=== PATIENT | female | born 1945 | race Caucasian/White ===

== ENCOUNTER 2018-03-09 11:36 | Emergency (ER) | payer MEDICARE ==
--- NOTE | 2018-03-09 12:50 | RAD ---
HISTORY: Right knee pain COMPARISONS: April 14, 2004 VIEWS: 4, Frontal, lateral, axial, and oblique views of the right knee FINDINGS: BONE DENSITY: Normal. BONES: There is no displaced fracture. JOINTS: There is chondrocalcinosis. There is mild tricompartmental osteoarthritis. There is no suprapatellar joint effusion or lipohemarthrosis. ALIGNMENT: There is no dislocation. SOFT TISSUES: Unremarkable. OTHER FINDINGS: None. IMPRESSION: 1. CHONDROCALCINOSIS. 2. OSTEOARTHRITIS. 3. NO ACUTE OSSEOUS INJURY. IF SYMPTOMS PERSIST, RECOMMEND REPEAT IMAGING.
[2018-03-09 13:20] VITALS: BP 129/70
--- NOTE | 2018-03-10 16:25 | ED ---
Beatriz Ge Thomas, scribed for Lb Dorantes MD on 03/09/18 at 1247 . Lower Extremity - HPI Summary HPI Summary: The patient is a 72 year old female complaining of right knee pain and swelling that began three days ago. She thinks she twisted her knee. The patient has been elevating her knee and applying ice. She has been taking naproxen for the pain. - History of Current Complaint Chief Complaint: EDExtremityLower Stated Complaint: RIGHT LEG PAIN Time Seen by Provider: 03/09/18 12:05 Hx Obtained From: Patient Mechanism Of Injury: Other - Twisted knee Onset/Duration: Still Present Severity Currently: Severe Pain Intensity: 9 Pain Scale Used: 0-10 Numeric Timing: Constant Location: Is Discrete @ - right knee Associated Signs And Symptoms: Positive: Swelling - to knee Aggravating Factor(s): Movement Alleviating Factor(s): Elevation, Ice, OTC Meds - Allergies/Home Medications Home Medications: Home Medications Aspirin EC TAB* [Ecotrin EC TAB*] 325 mg PO DAILY 03/09/18 [History Confirmed ] Lisinopril TAB* [Prinivil TAB*] 40 mg PO DAILY 03/09/18 [History Confirmed 03/09] PARoxetine HCL TAB* [Paxil TAB*] 30 mg PO DAILY 03/09/18 [History Confirmed 11/14] Simvastatin (NF) [Zocor (NF)] 40 mg PO DAILY 03/09/18 [History Confirmed ] clonazePAM TAB(*) [KlonoPIN TAB(*)] 0.5 - 1 mg PO BID PRN 03/09/18 [History Confirmed 03/09/18] PMH/Surg Hx/FS Hx/Imm Hx Cardiovascular History: Reports: Hx Coronary Artery Disease Musculoskeletal History: Reports: Hx Osteoporosis Infectious Disease History: No Infectious Disease History: Denies: Traveled Outside the [place] in Last 30 Days - Family History Known Family History: Positive: Other - Colon [place] - Social History Lives: With Family Alcohol Use: None Substance Use Type: Reports: None Smoking Status (MU): Heavy Every Day Tobacco Smoker Review of Systems Negative: Epistaxis Positive: Other - Right knee pain and swelling All Other Systems Reviewed And Are Negative: Yes Physical Exam - Summary Physical Exam Summary: GENERAL: Patient is a well-developed and nourished female who is lying comfortable in the stretcher. Patient is not in any acute respiratory distress. HEAD AND FACE: No signs of trauma. No ecchymosis, hematomas or skull depressions. No sinus tenderness. EYES: PERRLA, EOMI x 2, No injected conjunctiva, no nystagmus. EARS: Hearing grossly intact. Ear canals and tympanic membranes are within normal limits. MOUTH: Oropharynx within normal limits. NECK: Supple, trachea is midline, no adenopathy, no JVD, no carotid bruit, no c- spine tenderness, neck with full ROM. CHEST: Symmetric, no tenderness at palpation LUNGS: Clear to auscultation bilaterally. No wheezing or crackles. CVS: Regular rate and rhythm, S1 and S2 present, no murmurs or gallops appreciated. ABDOMEN: Soft, non-tender. No signs of distention. No rebound no guarding, and no masses palpated. Bowel sounds are normal. EXTREMITIES: She has swelling to the right knee, especially the medial aspect of the knee. There is no deformity, ecchymosis, and hematoma. She has good pulses and good capillary refill. Otherwise, FROM in all major joints, no edema , no cyanosis or clubbing. NEURO: Alert and oriented x 3. No acute neurological deficits. Speech is normal and follows commands. SKIN: Dry and warm Triage Information Reviewed: Yes Vital Signs On Initial Exam: Initial Vitals Temp Pulse Resp BP Pulse Ox 99.3 F 108 20 146/86 92 03/09/18 11:39 03/09/18 11:39 03/09/18 11:39 03/09/18 11:39 03/09/18 11:39 Vital Signs Reviewed: Yes Diagnostics - Vital Signs Vital Signs Temp Pulse Resp BP Pulse Ox 03/09/18 11:39 99.3 F 108 20 146/86 92 - Laboratory Lab Statement: Any lab studies that have been ordered have been reviewed, and results considered in the medical decision making process. - Radiology Knee XR Xray Interpretation: No Acute Changes - IMPRESSION: 1. CHONDROCALCINOSIS. 2. OSTEOARTHRITIS. 3. NO ACUTE OSSEOUS INJURY. IF SYMPTOMS PERSIST, RECOMMEND REPEAT IMAGING. Dr. Dorantes has reviewed this report. Radiology Interpretation Completed By: Radiologist Re-Evaluation - Re-Evaluation First Eval Re-Evaluation Time: 13:07 Comment: Results discussed. Patient will be discharged. Lower Extremity Course/Dx - Course Assessment/Plan: The patient is a 72 year old female complaining of right knee pain and swelling that began three days ago. She thinks she twisted her knee. The patient has been elevating her knee and applying ice. She has been taking naproxen for the pain. Knee XR shows 1. CHONDROCALCINOSIS. 2. OSTEOARTHRITIS. 3. NO ACUTE OSSEOUS INJURY. IF SYMPTOMS PERSIST, RECOMMEND REPEAT IMAGING. The patient did not require any pain medication. It seems that the patient has osteoarthritis and chondrocalcinosis. Her pain was relieved by ibuprofen. She is not in any active pain at this time. The patient was placed in a knee immobilizer. The patient will be discharged home to follow up with primary care. - Diagnoses Provider Diagnoses: Knee pain Discharge - Sign-Out/Discharge Documenting (check all that apply): Discharge - Discharge Plan Condition: Stable Disposition: HOME Patient Education Materials: Ibuprofen (By mouth), Knee Pain (ED) Referrals: Zachary Infante MD [Primary Care Provider] - 3 Days Additional Instructions: Follow up with your primary care physician in three days. Take ibuprofen for the pain. Return to the emergency department for any new or worsening symptoms. The documentation as recorded by the Beatriz moore Thomas accurately reflects the service I personally performed and the decisions made by me, Lb Dorantes MD.
== END 2018-03-09 13:19 | disposition home or self-care (01) ==
LOC: ED 11:36
DX: M25.561 Pain in right knee (principal); X50.1XXA Overexertion from prolonged static or awkward postures, initial encounter; Y92.9 Unspecified place or not applicable; M11.261 Other chondrocalcinosis, right knee; M17.11 Unilateral primary osteoarthritis, right knee
CPT/HCPCS: 99281

== ENCOUNTER 2019-02-18 00:09 | Observation (INO) | payer MEDICARE ==
[2019-02-18] MEDS ORDERED: Albuterol 0.5% CONC NEB.SOL* 5 MG/ML 20 ml BOT INH ONE (00:25)
[2019-02-18] MEDS ORDERED: Dexamethasone IV* 4 MG/ML 1 ML (4 MG) IM ONE (00:25)
--- NOTE | 2019-02-18 00:33 | ED ---
Shortness of Breath - HPI Summary HPI Summary: This patient is a 73 year old F presenting to [facility] accompanied by family with a chief complaint of progressively worsening SOB for the past two weeks. She states she has quit smoking since her symptoms began. Reports clear productive cough. Patient denies chest pain, fever, and lower extremity pain and swelling. Patient states she does not have any at home inhalers or nebulizers. PMHX includes COPD, anxiety, HTN, and LA in 2004. - History of Current Complaint Chief Complaint: EDShortnessOfBreath Time Seen by Provider: 02/18/19 00:22 Hx Obtained From: Patient Onset/Duration: Gradual Onset, Lasting Weeks Timing: Constant Dyspnea At: Rest Alleviating Factors: Nothing Associated Signs & Symptoms: Cough (Nonproductive), Wheezing - Allergy/Home Medications Allergies/Adverse Reactions: Allergies Allergy/AdvReac Type Severity Reaction Status Date / Time codeine Allergy Difficulty Verified 02/18/19 00:14 Breathing Home Medications: Home Medications Alendronate Sodium [Fosamax-] 70 mg PO WEEKLY 02/18/19 [History Confirmed ] Multivit-Min/Iron/Folic/Lutein [Centrum Silver Women Tablet] 1 each PO DAILY [History Confirmed 02/18/19] PMH/Surg Hx/FS Hx/Imm Hx Endocrine/Hematology History: Denies: Hx Diabetes Cardiovascular History: Reports: Hx Coronary Artery Disease, Hx Hypertension - ON MEDS, Hx Myocardial Infarction Denies: Hx Pacemaker/ICD Respiratory History: Reports: Hx Chronic Obstructive Pulmonary Disease (COPD) History: Denies: Hx Renal Disease Musculoskeletal History: Reports: Hx Osteoporosis Sensory History: Reports: Hx Hearing Aid Psychiatric History: Reports: Hx Panic Disorder - ON MEDS - Cancer History Hx Chemotherapy: No Hx Radiation Therapy: No - Surgical History Surgery Procedure, Year, and Place: RIGHT HIP REPLACEMENT-LSP SURGERY W PIN 2009 Infectious Disease History: No Infectious Disease History: Denies: Traveled Outside the [place] in Last 30 Days - Family History Known Family History: Positive: Other - Colon [place] - Social History Alcohol Use: None Substance Use Type: Reports: None Hx Tobacco Use: Yes - quit two weeks ago Smoking Status (MU): Heavy Every Day Tobacco Smoker Review of Systems Negative: Fever Negative: Chest Pain Positive: Shortness Of Breath, Cough Negative: Edema All Other Systems Reviewed And Are Negative: Yes Physical Exam - Summary Physical Exam Summary: Vital signs: notable for tachypnea and low O2 saturation Appearance: elderly woman appearing older than stated age,mild-moderate respiratory distress Skin: Warm, dry, no obvious rash Eyes: sclera anicteric, no conjunctival pallor ENT: mucous membranes moist, pharynx appears normal Neck: Supple, nontender Respiratory: Diffuse wheezing with diminished aeration, mild-moderate respiratory distress Cardiovascular: Normal S1, S2. No murmurs. Normal distal pulses in tibial and radial bilaterally. Abdomen: Soft, nontender, normal active bowel sounds present Musculoskeletal: Normal, Strength/ROM Intact Neurological: A&Ox3, awake and alert, mentation is normal, speech is fluent and appropriate Psychiatric: affect is normal, does not appear anxious or depressed Triage Information Reviewed: Yes Vital Signs On Initial Exam: Initial Vitals Temp Pulse Resp BP Pulse Ox 97.8 F 100 12 164/120 73 02/18/19 00:11 02/18/19 00:11 02/18/19 00:11 02/18/19 00:11 02/18/19 00:11 Vital Signs Reviewed: Yes Diagnostics - Vital Signs Vital Signs Temp Pulse Resp BP Pulse Ox 02/18/19 00:11 97.8 F 100 12 164/120 73 - Laboratory Result Diagrams: 02/18/19 00:40 02/18/19 00:40 Lab Statement: Any lab studies that have been ordered have been reviewed, and results considered in the medical decision making process. - Radiology CXR Radiology Interpretation Completed By: ED Physician Summary of Radiographic Findings: No acute process. - EKG 0052 Cardiac Rate: NL - 95 BPM EKG Rhythm: Sinus Rhythm Summary of EKG Findings: NSR at 95 BPM, P waves, QRS complex, and T waves are within normal limits, T waves and intervals are normal, no ischemic changes. This is a normal EKG. Re-Evaluation - Re-Evaluation 1 Re-Evaluation Time: 01:34 Change: Improved - Patient is slightly improved but still requires oxygen and is still wheezing. Course/Dx - Course Course Of Treatment: 73 year old F presenting to [facility] accompanied by family with a chief complaint of progressively worsening SOB for the past two weeks. PMHx of COPD. CXR reveals no acute process. EKG is NSR at 95 BPM. Bloodwork is obtained. Patient is given 8mg of IM Decadron and albuterol via nebulizer. Despite treatment patient continues to require oxygen due to low O2 saturation in the low 70s and continues to wheeze. Case discussed with Dr. Bravo, hospitalist, who agrees to accept patient for admission. - Diagnoses Provider Diagnoses: COPD with exacerbation, Acute respiratory failure with hypoxia - Physician Notifications Discussed Care of Patient With: Eleuterio Bravo - hospitalist Time Discussed With Above Provider: 01:40 Instructed by Provider To: Admit As Inpatient Discharge - Sign-Out/Discharge Documenting (check all that apply): Patient Departure - admit Patient Received Moderate/Deep Sedation with Procedure: No - Discharge Plan Condition: Fair Disposition: ADMITTED TO [facility] - Billing Disposition and Condition Condition: FAIR Disposition: Admitted to [facility] - Attestation Statements Document Initiated by Yvette: Yes Documenting Scribe: Jeanne Vaughn Provider For Whom Chasidye is Documenting (Include Credential): Albert Bailey MD Scribe Attestation: Jeanne Ge, scribed for Albert Bailey MD on 02/21/19 at 1833. Scribe Documentation Reviewed: Yes Provider Attestation: The documentation as recorded by the Jeanne moore accurately reflects the service I personally performed and the decisions made by Albert nova MD Status of Scribe Document: Viewed
[2019-02-18 00:53] LABS: ABS Basophils 0.1 10^3/ul (0-0.2); ABS Eosinophils 0.2 10^3/ul (0-0.6); ABS Lymphocytes 1.1 10^3/ul (1.0-4.8); ABS Monocytes 0.4 10^3/ul (0-0.8); ABS Neutrophils 7.7 10^3/ul (1.5-7.7); ABS Nucleated RBC 0 10^3/ul; Eosinophil % 2.2 %; Hematocrit 43 % (33-41); Hemoglobin 14.5 g/dL (12.0-16.0); Lymphocyte % 11.5 %; Mean Corpuscular HGB Conc 34 g/dL (31-36); Mean Corpuscular Hemoglobin 32 pg (27-31); Mean Corpuscular Volume 95 fL (80-97); Mean Platelet Volume 8.7 fL (7.4-10.4); Nucleated Red Blood Cells % 0; Platelet Count 183 10^3/uL (150-450); Red Blood Count 4.52 10^6 /uL (3.70-4.87); Red Cell Distribution Width 13 % (10.5-15); White Blood Count 9.5 10^3/uL (3.5-10.8)
[2019-02-18 01:10] LABS: Albumin 4.3 g/dL (3.2-5.2); Calcium 9.6 mg/dL (8.6-10.3); Potassium 3.7 mmol/L (3.5-5.0); Total Bilirubin 0.4 mg/dL (0.2-1.0); Troponin I 0.01 ng/mL (<0.04)
[2019-02-18 01:16] LABS: Albumin/Globulin Ratio 1.7 (1-3); EGFR African American 82.9 (>60); EGFR Non-African American 68.5 (>60); Globulin 2.6 g/dL (2-4); Total Protein 6.9 g/dL (6.4-8.9)
[2019-02-18] MEDS ORDERED: Albuterol 2.5 MG/3 ML NEB.SOL* (0.083%) INH PRN (02:06)
[2019-02-18] MEDS ORDERED: Ipratropium 0.5MG/2.5ML NEB* 0.5 MG/2.5 ML NEB.SOLN INH PRN (02:06)
[2019-02-18] MEDS ORDERED: Azithromycin TAB* 250 MG PO ONE (02:07)
[2019-02-18] MEDS ORDERED: Ondansetron INJ* 2 MG/ML VIAL IV PRN (04:13)
[2019-02-18] MEDS: Heparin VIAL(*) 5000 UNITS/ML VIAL (FIVE THOUSAND) SUBCUT SCH ×3 (05:02→22:05)
--- NOTE | 2019-02-18 05:09 | ADMNOTE ---
Subjective Date of Service: 02/18/19 Interval History: HISTORY AND PHYSICAL PCP: Arelis CC: dyspnea HPI: 73 year old woman with COPD reports 2 weeks of progressive dyspnea and cough. She quit smoking for Lent 2 weeks ago, and has felt progressively worse since then. Cough is productive of clear sputum. She denies chest pain, has some sore throat. She admits to having COPD. States she was given an inhaler sample 2 months ago at PCP office. 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, no alcohol or drugs Past Medical History: Findings - Anxiety, h/o suicide attempt 2003, hypertension , PR in 2005 with preserved EF, osteoporosis; PSH: RT hip fracture repair 2008, T&A as child, hysterectomy/BSO Review of Systems - Measurements Intake and Output: Intake and Output Last 24 Hours 02/15/19 02/16/19 02/17/19 02/18/19 06:59 06:59 06:59 06:59 Weight 49.895 kg - Review of Systems Constitutional Symptoms: Negative: Fever Dermatology: Positive: Normal HEENT: Positive: Normal Eyes: Positive: Normal Thyroid: Positive: Normal Pulmonary: Positive: Cough, Shortness of Breath, COPD Negative: Hemoptysis Cardiology: Positive: Normal Gastroenterology: Positive: Normal Genital - Urinary: Positive: Normal Genitourinay - Female: Positive: Menopause Endocrinology: Positive: Normal Neurology: Positive: Headache Psychiatry: Positive: Normal Objective Active Medications: Home Medications: Aspirin (Ecotrin Ec Tab*) 325 mg PO DAILY [facility] Atorvastatin Calcium (Lipitor*) 20 mg PO QPM [facility] Clonazepam (Klonopin Tab(*)) 0.5 mg PO BID PRN PRN Reason: ANXIETY Lisinopril (Prinivil Tab*) 40 mg PO DAILY [facility] Ondansetron HCl (Zofran Inj*) 4 mg IV Q6H PRN PRN Reason: NAUSEA Last Admin: 02/18/19 05:02 Dose: 4 mg Paroxetine HCl (Paxil Tab*) 30 mg PO DAILY [facility]ARA Vital Signs - 8 hr 02/18/19 02/18/19 02/18/19 00:11 00:21 00:29 Temperature 36.6 C Pulse Rate 100 104 105 Respiratory 12 15 Rate Blood Pressure 164/120 164/114 (mmHg) O2 Sat by Pulse 73 92 88 Oximetry 02/18/19 02/18/19 02/18/19 02:29 02:58 03:33 Temperature 36.7 C 36.6 C Pulse Rate 88 88 77 Respiratory 18 20 20 Rate Blood Pressure 101/76 101/76 130/83 (mmHg) O2 Sat by Pulse 91 92 93 Oximetry Oxygen Devices in Use Now: Nasal Cannula Appearance: alert, frail appearing Eyes: No Scleral Icterus Ears/Nose/Mouth/Throat: NL Teeth, Lips, Gums, Clear Oropharnyx Neck: NL Appearance and Movements; NL JVP, Trachea Midline Respiratory: Symmetrical Chest Expansion and Respiratory Effort, - - diminished breath sounds throughout Cardiovascular: NL Sounds; No Murmurs; No JVD Abdominal: NL Sounds; No Tenderness; No Distention Lymphatic: No Cervical Adenopathy Extremities: No Edema Skin: No Rash or Ulcers Neurological: Alert and Oriented x 3 Lines/Tubes/Other Access: Clean, Dry and Intact Peripheral IV Nutrition: Taking PO's Result Diagrams: 02/18/19 00:40 02/18/19 00:40 Additional Lab and Data: Laboratory Tests 02/18/19 02/18/19 00:40 00:46 Lactic Acid 1.0 AST 21 ALT 10 Troponin I 0.01 Diagnostic Imaging: CXR: hyperinflation, no infiltrates EKG Data: NSR, normal axis, no ST or T-wave changes to suggest ischemia Assess/Plan/Problems-Billing Assessment: 73 year old woman with COPD exacerbation - Patient Problems (1) COPD with exacerbation Current Visit: Yes Status: Acute Priority: High Code(s): J44.1 - CHRONIC OBSTRUCTIVE PULMONARY DISEASE W (ACUTE) EXACERBATION SNOMED Code(s): 082191787 Comment: -Patient requires admission due to hypoxia, dyspnea. -Will supplement Oxygen -Started on IV steroids in ER, will continue as oral treatment -Started on Azithromycin to treat possible bronchitis -Will have ipratropium routine, and PRN albuterol -Should be discharged on LAMA and LABA (2) Hypertension Current Visit: Yes Status: Acute Priority: Medium Code(s): I10 - ESSENTIAL (PRIMARY) HYPERTENSION SNOMED Code(s): 49699085 Comment: -BP adequately controlled -Continue home medication (3) Coronary arteriosclerosis Current Visit: Yes Status: Acute Priority: Medium Code(s): I25.10 - ATHSCL HEART DISEASE OF [place] CORONARY ARTERY W/O ANG PCTRS SNOMED Code(s): 54266923 Comment: -has h/o PR, but cardiac situation stable at this time -continue statin, aspirin (4) DVT prophylaxis Current Visit: Yes Status: Acute Priority: Low Code(s): MHW1746 - SNOMED Code(s): 376349955 Comment: - SC heparin given Status and Disposition: observation
[2019-02-18] MEDS ORDERED: Ipratropium 0.5MG/2.5ML NEB* 0.5 MG/2.5 ML NEB.SOLN INH ONE (05:32)
[2019-02-18] MEDS: Aspirin EC TAB* 325 MG PO SCH (09:47)
[2019-02-18] MEDS: PARoxetine HCL TAB* 10 MG PO SCH (09:47)
[2019-02-18] MEDS: Lisinopril TAB* 10 MG PO SCH (09:48)
[2019-02-18] MEDS: predniSONE TAB* 20 MG PO SCH (09:48)
[2019-02-18] MEDS: clonazePAM TAB(*) 0.5 MG PO PRN (10:00)
--- NOTE | 2019-02-18 16:47 | PN ---
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, no alcohol or drugs Past Medical History: Findings - Anxiety, h/o suicide attempt 2003, hypertension , [place] in 2005 with preserved EF, osteoporosis; PSH: RT hip fracture repair 2008, T&A as child, hysterectomy/BSO Objective Active Medications: Albuterol (Ventolin 2.5 Mg/3 Ml Neb.Amy*) 2.5 mg INH [id number] AWAKE PRN PRN Reason: SOB/WHEEZING Aspirin (Ecotrin Ec Tab*) 325 mg PO DAILY [facility] Last Admin: 02/18/19 09:47 Dose: 325 mg Atorvastatin Calcium (Lipitor*) 20 mg PO QPM [facility] Azithromycin (Zithromax Tab*) 250 mg PO DAILY [facility] Clonazepam (Klonopin Tab(*)) 0.5 mg PO BID PRN PRN Reason: ANXIETY Last Admin: 02/18/19 10:00 Dose: 0.5 mg Heparin Sodium (Porcine) (Heparin Vial(*)) 5,000 units SUBCUT Q8HR [facility] Last Admin: 02/18/19 14:21 Dose: 5,000 units Lisinopril (Prinivil Tab*) 40 mg PO DAILY [facility] Last Admin: 02/18/19 09:48 Dose: 40 mg Ondansetron HCl (Zofran Inj*) 4 mg IV Q6H PRN PRN Reason: NAUSEA Last Admin: 02/18/19 05:02 Dose: 4 mg Paroxetine HCl (Paxil Tab*) 30 mg PO DAILY [facility] Last Admin: 02/18/19 09:47 Dose: 30 mg Prednisone (Deltasone Tab*) 40 mg PO DAILY [facility] Last Admin: 02/18/19 09:48 Dose: 40 mg Vital Signs - 8 hr 02/18/19 02/18/19 02/18/19 10:00 12:10 12:21 Temperature 97.4 F Pulse Rate 68 Respiratory 16 16 19 Rate Blood Pressure 111/66 (mmHg) O2 Sat by Pulse 96 Oximetry 02/18/19 15:24 Temperature 97.8 F Pulse Rate 74 Respiratory 16 Rate Blood Pressure 117/64 (mmHg) O2 Sat by Pulse 93 Oximetry Oxygen Devices in Use Now: Nasal Cannula Appearance: NAD Eyes: No Scleral Icterus, PERRLA Ears/Nose/Mouth/Throat: NL Teeth, Lips, Gums, Clear Oropharnyx Neck: NL Appearance and Movements; NL JVP, Trachea Midline Respiratory: Symmetrical Chest Expansion and Respiratory Effort, - - end expiratory wheezes Cardiovascular: NL Sounds; No Murmurs; No JVD, RRR Abdominal: NL Sounds; No Tenderness; No Distention Lymphatic: No Cervical Adenopathy, No Axillary Adenopathy Extremities: No Edema Skin: No Rash or Ulcers Neurological: Alert and Oriented x 3 Result Diagrams: 02/18/19 00:40 02/18/19 00:40 Additional Lab and Data: Laboratory Tests 02/18/19 02/18/19 00:40 00:46 Lactic Acid 1.0 AST 21 ALT 10 Troponin I 0.01 Diagnostic Imaging: CXR: hyperinflation, no infiltrates EKG Data: NSR, normal axis, no ST or T-wave changes to suggest ischemia Assess/Plan/Problems-Billing Assessment: 73 year old woman with COPD exacerbation - Patient Problems (1) Acute respiratory failure with hypoxia Comment: COPD exacerbation c/w PO prednisone start dulera and spiriva azithromycin Will need ambulation to see if oxygen required prior ro any d/c (2) Coronary arteriosclerosis Comment: h/o [place] ASA, statin, ACEi (3) Hypertension Comment: lisinopril (4) DVT prophylaxis Comment: SQH Status and Disposition: observation
[2019-02-18] MEDS ORDERED: Spiriva Inhaler DEVICE* 1 EACH DEVICE INH SCH (17:00)
[2019-02-18] MEDS ORDERED: Atorvastatin* 20 MG TAB PO SCH (18:00)
[2019-02-18] MEDS: Mometasone/Formoter 200/5 MDI INH SCH (20:22)
[2019-02-18] MEDS ORDERED: GuaiFENesin DM* 5 ML UDC PO PRN (23:10)
[2019-02-19] MEDS: Heparin VIAL(*) 5000 UNITS/ML VIAL (FIVE THOUSAND) SUBCUT SCH ×2 (05:19→13:35)
[2019-02-19] MEDS ORDERED: Azithromycin TAB* 250 MG PO SCH (06:00)
[2019-02-19] MEDS: Mometasone/Formoter 200/5 MDI INH SCH (07:41)
[2019-02-19] MEDS: predniSONE TAB* 20 MG PO SCH (08:55)
[2019-02-19] MEDS: Aspirin EC TAB* 325 MG PO SCH (08:55)
[2019-02-19] MEDS: PARoxetine HCL TAB* 10 MG PO SCH (08:55)
[2019-02-19] MEDS: Lisinopril TAB* 10 MG PO SCH (08:56)
[2019-02-19] MEDS ORDERED: Tiotropium CAP.INH* CAP.INH/18 MCG (USE ORDER SET !) INH SCH (09:00)
[2019-02-19] MEDS: clonazePAM TAB(*) 0.5 MG PO PRN (09:21)
[2019-02-19 12:11] VITALS: BP 127/68
--- NOTE | 2019-02-19 15:51 | DS ---
CC: Dr. Infante * DATE OF ADMISSION: 02/18/2019. DATE OF DISCHARGE: 02/19/2019. PRINCIPAL DISCHARGE DIAGNOSES: 1. Acute hypoxic respiratory failure. 2. COPD exacerbation. SECONDARY DISCHARGE DIAGNOSES: 1. Coronary artery disease. 2. Hypertension. MEDICATIONS AT THE TIME OF DISCHARGE: 1. Clonazepam 0.5 mg b.i.d. prn anxiety. 2. Simvastatin 40 mg daily. 3. Paxil 30 mg daily. 4. Lisinopril 40 mg daily. 5. Aspirin 325 mg daily. 6. Fosamax 70 mg weekly. 7. Centrum Silver one tab daily. 8. Dulera two puffs inhaled b.i.d. 9. Prednisone 40 mg daily for 5 days and then 20 mg daily for 5 days. 10. Spiriva one inhaled daily. PHYSICAL EXAMINATION AT DISCHARGE: General: Alert, well-appearing, thin female in no distress. She is able to speak in full sentences with no accessory respiratory muscle use. Vital Signs: Temperature 98 degrees, heart rate 68, respiratory rate 16, pulse ox 97 percent on 3 liters at rest and 88 percent on 3 liters with ambulation, blood pressure 127/68. HEENT: Pupils equal, round, and reactive to light. Oral mucosa is moist. Neck: No JVP, no adenopathy. Chest: She is a regular rate and rhythm with no murmurs. She has no wheezes. Breath sounds are equal bilaterally. Abdomen: Soft, nontender, nondistended. No guarding or rebound. No CVA tenderness. Extremities: No edema, rashes, or ulcers. Neurologic: Strength 5/ 5. She is oriented times three. HOSPITAL COURSE BY PROBLEM: 1. Acute hypoxic respiratory failure: Ms. Morgan was admitted for presumptive COPD exacerbation and started on Azithromycin, steroids, and nebulizers. She improved quickly and is feeling much better and requesting discharge on 2018. She has no evidence of infectious symptoms. I am discharging her on a 10 day course of steroids given severity of her hypoxia and she has qualified for home O2. She is to wear 4 liters when she ambulates and 2 liters at rest and she has to follow-up with Dr. Infante within one week to be sure she is continuing to get better. 2. COPD exacerbation: As above. She is being discharged on Prednisone and in addition Dulera and Spiriva which are new to her. She says she has never had PFT's which I recommended that she discuss with Dr. Infante to see if he agrees that they would be indicated. 3. History of coronary artery disease: She was continued on aspirin and statin. 4. Hypertension: She was continued on Lisinopril. 5. Depression and anxiety: She was continued on Paxil and Klonopin. DISPOSITION: Ms. Morgan is discharged to home with her family with home oxygen that she was instructed to wear at all times and needs close follow-up with Dr. Infante. CONDITION AT THE TIME OF DISCHARGE: Stable. TIME SPENT: Forty minutes were spent on this discharge. [id number]/[facility] #: [id number] RANJANA
== END 2019-02-19 15:40 | disposition home or self-care (01) ==
LOC: ED 00:09 → MED 02:03
PROVIDERS: ADMIT Internal Medicine; ATTEND Internal Medicine
DX: J96.01 Acute respiratory failure with hypoxia (principal); J44.1 Chronic obstructive pulmonary disease with (acute) exacerbation; I25.10 Atherosclerotic heart disease of native coronary artery without angina pectoris; R05 Cough; R06.2 Wheezing; F17.210 Nicotine dependence, cigarettes, uncomplicated; I10 Essential (primary) hypertension; Z79.82 Long term (current) use of aspirin
CPT/HCPCS: 36415; 71046; 80053; 83605; 84484; 85025; 87040; 93005; 94640; 96372; 96374; 99284; A9270-GY; G0378; J1100; J1644; J2405; J7512; J7611

== ENCOUNTER → 2019-10-31 10:55 | Day surgery (SDC) | payer MEDICARE ==
[~2019-10-31 10:55] MED LIST: Acetaminophen TAB* 325 MG PO PRN; Buffered Lidocaine 1% SYRIN* 1 ML/SYRINGE INTRADERM ONE; Cyclopentolate 1% OPTH.SOL* 2 ML BTL ONE; Ketorolac 0.5% OPHTH (NF) 0.5 % 5 ML BTL ONE; Lidocaine 1% MPF ** 5 ML VIAL ONE; Lidocaine 2% w/ EPI 1:200,000* 20 ML SDV VIAL ONE; Midazolam* 1 MG/ML 2 ML VIAL (2 MG) ONE; Neomycin/Polymy/Dex OPTH.SUSP* MAXITROL 0.1% 5 ML ONE; Phenylephrine OPHTH SOL 2.5%* 2 ML ONE; Povidone Iodine 5% OPTH* 30 ML BTL ONE; Proparacaine 0.5% OPHTH.SOL* 15 ML BTL ONE; acetaZOLAMIDE TAB* 250 MG ONE; fentaNYL* 50 MCG/ML 2 ML VIAL (100 MCG VIAL) ONE
[2019-10-31 14:03] VITALS: BP 147/76
--- NOTE | 2019-10-31 15:38 | OP ---
DATE OF OPERATION: 10/31/2019 - [facility] DATE OF : 1945. SURGEON: Rigoberto Ramirez M.D. PREOPERATIVE DIAGNOSIS: Cataract right eye. POSTOPERATIVE DIAGNOSIS: Cataract right eye. OPERATIVE PROCEDURE: Extracapsular cataract extraction with intraocular lens implant right eye. DESCRIPTION OF PROCEDURE: The patient was brought to the operating room after being given 1/2% Alcaine with epinephrine drops in the preoperative area. The eye was prepped and draped in the usual sterile fashion. Sterile drape and eyelid speculum were placed. Again, topical 1/2% Alcaine with epinephrine was given. A paracentesis incision was made at the 9 o'clock position with the No.75 blade. Clear cornea incision 2.2 x 2.2-mm was created at the 12 o'clock position starting at the anterior limbus using the 2.2-mm keratome. The anterior chamber was irrigated with 0.4 mL of 1% non-preservative intracameral lidocaine and filled with DisCoVisc. A capsulorrhexis was completed using the cystotome and the Utrata forceps. Hydrodissection was performed with balanced salt solution. The lens nucleus was removed with the Phacoemulsification handpiece without incident. Cortex was removed with the irrigation-aspiration handpiece. The capsular bag was re-inflated using DisCoVisc and an SN60WF 20.5 implant was inserted with the shooter. The irrigation-aspiration handpiece was used to remove all residual DisCoVisc. The eye was refilled with balanced salt solution and the wound checked and found to be watertight. Topical Maxitrol drops were given. [id number]/[facility] #: [id number] [facility]
== END | disposition home or self-care (01) ==
LOC: OREAST 10:55
PROVIDERS: ATTEND Specialist
DX: H25.811 Combined forms of age-related cataract, right eye (principal); H34.8322 Tributary (branch) retinal vein occlusion, left eye, stable; H49.12 Fourth [trochlear] nerve palsy, left eye; I10 Essential (primary) hypertension; M19.90 Unspecified osteoarthritis, unspecified site; E78.00 Pure hypercholesterolemia, unspecified; Z87.891 Personal history of nicotine dependence; J44.9 Chronic obstructive pulmonary disease, unspecified; E78.5 Hyperlipidemia, unspecified; F41.9 Anxiety disorder, unspecified
CPT/HCPCS: A9270-GY; J2250; J3010; V2632

== ENCOUNTER 2019-11-07 11:44 | Day surgery (SDC) | payer MEDICARE ==
[~2019-11-07 11:44] MED LIST changes: -Acetaminophen TAB* 325 MG PO PRN; -Midazolam* 1 MG/ML 2 ML VIAL (2 MG) ONE; -fentaNYL* 50 MCG/ML 2 ML VIAL (100 MCG VIAL) ONE
[2019-11-07] MEDS ORDERED: Midazolam* 1 MG/ML 2 ML VIAL (2 MG) ONE (14:44)
[2019-11-07 15:35] VITALS: BP 156/92
--- NOTE | 2019-11-07 21:07 | OP ---
DATE OF OPERATION: 11/07/19 [facility] DATE OF : [birth year] SURGEON: Rigoberto Ramirez MD. PREOPERATIVE DIAGNOSIS: Cataract, left eye. POSTOPERATIVE DIAGNOSIS: Cataract, left eye. OPERATIVE PROCEDURE: Extracapsular cataract extraction with intraocular lens implant, left eye. DESCRIPTION OF PROCEDURE: The patient was brought to the operating room after being given 1/2% Alcaine with epinephrine drops in the preoperative area. The eye was prepped and draped in the usual sterile fashion. Sterile drape and eyelid speculum were placed. Again, topical 1/2% Alcaine with epinephrine was given. A paracentesis incision was made at the 3 o'clock position with the No.75 blade. Clear cornea incision 2.2 x 2.2-mm was created at the 6 o'clock position starting at the anterior limbus using the 2.2-mm keratome. The anterior chamber was irrigated with 0.4 mL of 1% non-preservative intracameral lidocaine and filled with DisCoVisc. A capsulorrhexis was completed using the cystotome and the Utrata forceps. Hydrodissection was performed with balanced salt solution. The lens nucleus was removed with the Phacoemulsification handpiece without incident. Cortex was removed with the irrigation-aspiration handpiece. The capsular bag was re-inflated using DisCoVisc and an SN60WF 22.5 implant was inserted with the shooter. The irrigation-aspiration handpiece was used to remove all residual DisCoVisc. The eye was refilled with balanced salt solution and the wound checked and found to be watertight. Topical Maxitrol drops were given. [id number]/[facility] #: [id number] [facility]
== END 2019-11-07 15:28 | disposition home or self-care (01) ==
LOC: OREAST 11:44
PROVIDERS: ATTEND Specialist
DX: H25.812 Combined forms of age-related cataract, left eye (principal); H34.8322 Tributary (branch) retinal vein occlusion, left eye, stable; H49.12 Fourth [trochlear] nerve palsy, left eye; I10 Essential (primary) hypertension; M19.90 Unspecified osteoarthritis, unspecified site; E78.00 Pure hypercholesterolemia, unspecified; Z87.891 Personal history of nicotine dependence; J44.9 Chronic obstructive pulmonary disease, unspecified; F41.8 Other specified anxiety disorders; E78.5 Hyperlipidemia, unspecified
CPT/HCPCS: A9270-GY; J2250; V2632